=== PATIENT | female | born 1955 | race Caucasian/White ===

== ENCOUNTER 2022-11-20 10:34 | Outpatient (OUT) | payer MEDICARE, SELFPAY | END 2022-11-20 10:35 | LOC: WC 10:34 | PROVIDERS: Visit Provider Podiatrist Foot & Ankle Surgery | DX: L97.521 Non-pressure chronic ulcer of other part of left foot limited to breakdown of skin (principal) | CPT/HCPCS: 99212; G0463 ==

== ENCOUNTER 2022-12-17 09:53 | Outpatient (OUT) | payer MEDICARE, SELFPAY ==
--- NOTE | 2022-12-17 10:20 | XR_ITS ---
The [address] [address] Patient Name: LILY MCKENNA MRN: [id number] date: 1955 Sex: F Assigned Patient Location: Current Patient Location: Accession/Order Number: [id number] Exam Date: 12/17/2022 10:20 Report Date: 12/17/2022 13:14 At the request of: REMI FISH Procedure: XR foot LT min 3V PROCEDURE: XR foot LT min 3V HISTORY: LEFT FOOT PAIN ; follow-up chronic left fourth toe ulcer COMPARISON: XR foot left 08/29/2022 FINDINGS: BONES:No fracture, dislocation, cortical destruction, or periosteal reaction. SOFT TISSUES:No visible soft tissue swelling. EFFUSION:None visible. OTHER: Negative. XR/XR foot LT min 3V IMPRESSION: 1. No findings to suggest osteomyelitis with specific attention to the fourth toe. Electronically authenticated by: JACKELINE CHRISTIANSEN Date: 12/17/2022 13:14
== END 2022-12-17 09:54 | disposition home or self-care (01) ==
LOC: WC 09:53
PROVIDERS: Visit Provider Physician Assistant
DX: M79.672 Pain in left foot (principal); L97.521 Non-pressure chronic ulcer of other part of left foot limited to breakdown of skin
CPT/HCPCS: 73630; G0463

== ENCOUNTER 2023-01-08 13:57 | Outpatient (OUT) | payer MEDICARE, SELFPAY | END 2023-01-08 13:58 | disposition home or self-care (01) | LOC: WC 13:57 | PROVIDERS: Visit Provider Podiatrist Foot & Ankle Surgery | DX: L97.521 Non-pressure chronic ulcer of other part of left foot limited to breakdown of skin (principal); M20.42 Other hammer toe(s) (acquired), left foot; M21.6X2 Other acquired deformities of left foot | CPT/HCPCS: G0463 ==

== ENCOUNTER 2023-01-22 13:02 | Outpatient (OUT) | payer MEDICARE, SELFPAY | END 2023-01-22 13:03 | disposition home or self-care (01) | LOC: WC 13:02 | PROVIDERS: Visit Provider Podiatrist Foot & Ankle Surgery | DX: L97.521 Non-pressure chronic ulcer of other part of left foot limited to breakdown of skin (principal); M20.42 Other hammer toe(s) (acquired), left foot; M21.6X2 Other acquired deformities of left foot | CPT/HCPCS: G0463 ==

== ENCOUNTER 2023-02-05 10:42 | Outpatient (OUT) | payer MEDICARE, SELFPAY ==
--- NOTE | 2023-02-05 11:26 | ECG_ITS ---
The [facility] Test Date: 2023-02-05 Pat Name: LILY MCKENNA Department: Room: - Gender: Female Clinical Education Consultant: : 1955 Requested By: NOE HENSLEY Order Number: [id number] Reading MD: JENNIFER COLES Measurements Intervals Bessie Rate: 69 P: 10 VT: 192 QRS: -2 QRSD: 108 T: 11 QT: 453 QTc: 487 Interpretive Statements SINUS RHYTHM LOW QRS VOLTAGE IN PRECORDIAL LEADS [QRS DEFLECTION < 1.0 mV IN CHEST LEADS] INFERIOR MYOCARDIAL INFARCTION [40+ ms Q WAVE AND/OR ST/T ABNORMALITY IN II/aVF], PROBABLY OLD No previous ECG available for comparison Electronically Signed On 02-06-2023 7:09:02 EDT by JENNIFER COLES
--- NOTE | 2023-02-05 12:04 | PM.PRESUREVA ---
History of Present Illness History of Present Illness Chief complaint: left hammer toe and tailors bunion Narrative: Patient presents for preadmission testing. Please see HPI from Dr. Mcfarland dated 01/22/2023. Review of Systems ROS Narrative REVIEW OF SYSTEMS: Negative except as stated in HPI, ten or more systems reviewed. Constitutional: No fever or chills ENT: No sore throat or epistaxis Cardiovascular: No chest pain, palpitations, or activity intolerance Respiratory: No shortness of breath, cough, or wheezing Gastrointestinal: No abdominal pain, constipation, diarrhea, or vomiting Genitourinary: No dysuria or hematuria Psychiatric: No mood changes [facility] Medical History (Updated 02/05/23 @ 11:54 by Vicki Arora NP) (05/23/21) Surgical History (Updated 02/05/23 @ 11:24 by Vicki Arora NP) Family History (Updated 02/05/23 @ 11:24 by Vicki Arora NP) Other Congestive heart failure Family history of bone cancer Family history of breast cancer Family history of prostate cancer Social History (Updated 02/05/23 @ 11:20 by Vicki Arora NP) Within the past year, how often did you have a drink containing alcohol: never Score interpretation: A score less than 3 is consistent with normal alcohol consumption. Smoking status: Former smoker Non-prescribed substance use: denies use Highest level of school completed/degree received: high school graduate Meds Home Medications and Allergies Home Medications Medication Instructions Recorded Confirmed Type amitriptyline 100 mg tablet 100 mg PO QPM 02/05/23 02/05/23 History amlodipine 5 mg tablet 5 mg PO QAM 02/05/23 02/05/23 History aspirin 81 mg tablet,delayed 81 mg PO DAILY 02/05/23 02/05/23 History release (Adult Aspirin Regimen) atorvastatin 40 mg tablet 40 mg PO QDAY 02/05/23 02/05/23 History buspirone 5 mg tablet 2.5 mg PO BID PRN anxiety 02/05/23 02/05/23 History calcitriol 0.5 mcg capsule 0.5 mcg PO QDAY 02/05/23 02/05/23 History calcium citrate 150 mg capsule mg PO 02/05/23 History escitalopram oxalate 10 mg tablet 10 mg PO QDAY 02/05/23 02/05/23 History levothyroxine 100 mcg tablet 100 mcg PO QAM 02/05/23 02/05/23 History magnesium oxide 400 mg (241.3 mg 400 mg PO BID 02/05/23 02/05/23 History magnesium) tablet melatonin 10 mg capsule 10 mg PO DAILY 02/05/23 02/05/23 History pantoprazole 40 mg tablet,delayed 40 mg PO Q12H 02/05/23 02/05/23 History release vitamin E (dl, acetate) 450 mg 450 mg PO DAILY 02/05/23 02/05/23 History (1,000 unit) capsule Allergies Allergy/AdvReac Type Severity Reaction Status Date / Time nitrofurantoin Allergy Hives Verified 02/05/23 11:16 [From Macrobid] Exam Narrative Exam Narrative: Constitutional: Awake, alert, comfortable, very pleasant, well-appearing, nontoxic, interactive, vital signs as charted Head: Normocephalic, atraumatic Neck: Supple, normal appearance, normal range of motion, no meningeal signs, no lymphadenopathy Respiratory: No respiratory distress, breath sounds clear Cardiovascular: Regular rate and rhythm, strong and regular heart tones Psychiatric: Oriented ?3, normal affect Assessment and Plan Assessment and Plan (1) Foot ulcer: (2) Hammertoe: (3) Tailors bunion: Plan Left 2nd and 5th toe arthroplasties, tailor's bunion correction scheduled with Dr. Mcfarland 02/14/2023.
== END 2023-02-05 10:43 | disposition home or self-care (01) ==
LOC: PST 10:42
PROVIDERS: PCP Nurse Practitioner; Visit Provider Podiatrist Foot & Ankle Surgery
DX: Z01.810 Encounter for preprocedural cardiovascular examination (principal); M20.42 Other hammer toe(s) (acquired), left foot; M21.622 Bunionette of left foot
CPT/HCPCS: 93005; G0463

== ENCOUNTER 2023-02-14 08:46 | Day surgery (SDC) | payer MEDICARE, SELFPAY ==
[2023-02-05 11:50] VITALS: BP 115/77; PULSE 83; RESP 18; TEMP 36.3; O2SAT 97; BMI 24.6
[2023-02-14] VITALS (9 sets, daily range): BP systolic 123–177; BP diastolic 76–100; PULSE 78–91; RESP 14–21; TEMP 36–36.2; O2SAT 90–97; BMI 25.5
[2023-02-14 09:22] LABS: Glucometer 85 mg/dL (74-106)
[2023-02-14] MEDS: LACTATED RINGER'S SOLUTION 1,000 ML 50 ML IV (09:29)
[2023-02-14] MEDS: CEFAZOLIN SODIUM/DEXTROSE,ISO 2 GM/50 ML PIGGYBACK IV (09:46)
--- NOTE | 2023-02-14 10:07 | P.ORON_ITS ---
Brief Operative Note Date of procedure: 02/14/23 Pre-op diagnosis: left 2nd/5th hammertoe, 4th toe contracture and tailor's bun ion Post-op diagnosis: same as pre-op Procedure: PROCEDURES PERFORMED: left tailor's bunionectomy, 2nd, 4th & 5th hammertoe correction with PIPJ arthroplasty, ostectomy 4th proximal phalanx INTRAOPERATIVE FINDINGS: consistent with diagnosis with prominence of the lateral eminence of the 5th metatarsal head. Reducible contractures of the 4th and 5th toes. Bony prominence of the base of the proximal phalanx of the 4th toe PROCEDURES IN DETAIL: Patient was identified in pre op and consent was reviewed. Correct side and site were identified and marked. Pre-op antibiotics were started. Patient was brought to OR suite and place on table in a supine position. General anesthesia was administered. Tourniquet applied. Operative extremity was prepped and draped in usual sterile fashion. Formal time-out was performed and the foot/ankle were exsanguinated and tourniquet inflated. incision was placed on the dorsal lateral aspect of the 5th metatarsal head. Comminution sharp and blunt dissection gained access to the capsule of the 5th metatarsophalangeal joint which was reflected closing the 5th metatarsal head. A sagittal saw was used to remove the bony prominence of the lateral eminence of the 5th metatarsal head. A hand rasp was used to contour the bone and the surgical site was irrigated with copious saline. With attention to the 2nd digit a dorsal incision was created over the PIPJ. Sharp and blunt dissection down to the extensor tendon was performed. The tendon was incised transversely then reflected proximally. A sagittal saw was used to remove the proximal phalanx head. The site was flushed with sterile saline. With attention to the 4th digit a dorsal incision was created over the PIPJ. Sharp and blunt dissection down to the extensor tendon was performed. The tendon was incised transversely then reflected proximally. A sagittal saw was used to remove the proximal phalanx head. The site was flushed with sterile saline. then the incision was extended proximally to the 4th metatarsal phalangeal joint. Sharp & blunt dissection along the lateral aspect of the 4th proximal phalanx was performed to expose the lateral condyle. Hand rasp was used to smooth this condyle until no longer prominent. With attention to the 5th digit a semi-elliptical dorsal incision was created over the PIPJ. Sharp and blunt dissection down to the extensor tendon was performed. The tendon was incised transversely then reflected proximally. A sagittal saw was used to remove the proximal phalanx head. The site was flushed with sterile saline. The tendons for toes 2, 4 & 5 were repaired with absorbable suture. Surgical site was irrigated copiously saline and all incisions were closed in layers. The tourniquet was deflated with a prompt hyperemic response. A dry sterile dressing and surgical shoe were applied. Patient tolerated procedure and anesthesia well transferred to the recovery room with vital signs stable and brisk capillary refill to all digits POSTOPERATIVE PLAN: Discharge home under family's care Post op instructions provided verbally and written prescription(s) were placed in chart weightbearing as tolerated in surgical shoe until skin has healed Follow-up in 1 week Implants: none Anesthesia: General-LMA Surgeon: Glen Mcfarland Material Disposition Inspector: Gio Case Estimated blood loss (mL): 10 Pathology: none sent Condition: stable Disposition: PACU Preoperative Details Reason for procedure: patient is a 67-year-old female status post CVA and well known to my practice. She initially presents me for a wound between her 4th and 5th toes which has healed with local wound care however patient hasn't noted on multiple visits of worsening pain and contractures specifically of the 2nd and 5th toe and a prominent Tailor's bunion on her left foot. Today in the preoperative area she also relates to pain at the base of the 4th toe over the lateral proximal condyle of the proximal phalanx. Shoe modification and padding did not help patient's pain or function therefore wishes to proceed with surgical intervention. Patient education was provided outlining all potential risks and benefits. All questions were answered to her and her 's expectation.
[2023-02-14] MEDS: BUPIVACAINE HCL 0.5% PF 50 MG/10 ML VIAL INJ (10:17)
--- NOTE | 2023-02-14 11:22 | XR_ITS ---
The [place] [id number] Patient Name: LILY MCKENNA MRN: [id number] date: 1955 Sex: F Assigned Patient Location: [facility] Current Patient Location: Accession/Order Number: [id number] Exam Date: 02/14/2023 12:00 Report Date: 02/14/2023 17:01 At the request of: LALO OCONNOR Procedure: XR foot LT min 3V XR foot LT min 3V, 02/14/2023 12:00 PM EDT, OH001 INDICATION: postop xr pacu COMPARISON: Radiographs from 12/17/2022. TECHNIQUE: 3 images are submitted. FINDINGS: There is been interval resection of the distal aspect of the fourth and fifth proximal phalanges. The bones appear well mineralized. No acute fracture or subluxation is identified. The joint spaces are maintained. No destructive osseous process is identified. The visualized soft tissues appear unremarkable. XR/XR foot LT min 3V IMPRESSION: Status post resection of the distal aspect of the fourth and fifth proximal phalanges. No other significant interval change is seen. Electronically authenticated by: ELLE PRIEST Date: 02/14/2023 17:01
[2023-02-14 11:51] LABS: Glucometer 97 mg/dL (74-106)
== END 2023-02-14 12:18 | disposition home or self-care (01) ==
PROVIDERS: PCP Nurse Practitioner; Visit Provider Podiatrist Foot & Ankle Surgery
PROC: (CPT 28110; principal; 2023-02-14 09:45)
DX: M20.42 Other hammer toe(s) (acquired), left foot (principal); M21.622 Bunionette of left foot; Z87.891 Personal history of nicotine dependence; Z79.82 Long term (current) use of aspirin; Z79.899 Other long term (current) drug therapy; M20.5X2 Other deformities of toe(s) (acquired), left foot
CPT/HCPCS: 28110; 28285 ×3; 36415; 73630; 82948; J2704

== ENCOUNTER 2023-03-05 14:54 | Outpatient (OUT) | payer MEDICARE, SELFPAY | END 2023-03-05 14:55 | disposition home or self-care (01) | LOC: WC 14:54 | PROVIDERS: PCP Nurse Practitioner; Visit Provider Podiatrist Foot & Ankle Surgery | DX: M20.42 Other hammer toe(s) (acquired), left foot (principal); M21.6X2 Other acquired deformities of left foot | CPT/HCPCS: G0463 ==

== ENCOUNTER 2023-04-03 14:28 | Outpatient (OUT) | payer MEDICARE, SELFPAY ==
--- NOTE | 2023-04-03 | XR_ITS ---
The [address] [address] Patient Name: LILY MCKENNA MRN: [id number] date: 1955 Sex: F Assigned Patient Location: Current Patient Location: Accession/Order Number: [id number] Exam Date: 04/03/2023 15:30 Report Date: 04/05/2023 06:19 At the request of: NOE HENSLEY Procedure: XR foot LT min 3V PROCEDURE: XR foot LT min 3V HISTORY: LEFT FOOT PAIN , left second toe pain, redness, swelling COMPARISON: XR foot 02/14/2023 FINDINGS: BONES:Prior resection of the distal articular surface of the second and fourth proximal phalanx. No fracture, dislocation, bone lesion. Multifocal mild degenerative changes involving the interphalangeal joints. SOFT TISSUES:Soft tissue swelling of the second toe. EFFUSION:None visible. OTHER: Negative. XR/XR foot LT min 3V IMPRESSION: 1. Stable surgical changes. 2. No suspicious bone abnormality. 3. Second toe soft tissue swelling of uncertain etiology. Electronically authenticated by: JACKELINE CHRISTIANSEN Date: 04/05/2023 06:19
== END 2023-04-03 14:29 | disposition home or self-care (01) ==
LOC: WC 14:28
PROVIDERS: PCP Nurse Practitioner; Visit Provider Podiatrist Foot & Ankle Surgery
DX: M20.42 Other hammer toe(s) (acquired), left foot (principal); S91.105A Unspecified open wound of left lesser toe(s) without damage to nail, initial encounter
CPT/HCPCS: 73630; G0463

== ENCOUNTER 2023-04-19 10:59 | Outpatient (OUT) | payer MEDICARE, SELFPAY | END 2023-04-19 11:00 | disposition home or self-care (01) | LOC: WC 10:59 | PROVIDERS: PCP Nurse Practitioner; Visit Provider Podiatrist Foot & Ankle Surgery | DX: M20.42 Other hammer toe(s) (acquired), left foot (principal) | CPT/HCPCS: G0463 ==

== ENCOUNTER 2024-02-05 10:15 | Outpatient (OUT) | payer MEDICARE, SELFPAY ==
--- NOTE | 2024-02-05 | XR_ITS ---
The [address] [address] Patient Name: LILY MCKENNA MRN: [id number] date: 1955 Sex: F Assigned Patient Location: Current Patient Location: Accession/Order Number: [id number] Exam Date: 02/05/2024 10:16 Report Date: 02/06/2024 07:28 At the request of: NOE HENSLEY Procedure: XR foot LT min 3V PROCEDURE: XR foot LT min 3V COMPARISON: 04/03/2023 HISTORY: LEFT FOOT PAIN FINDINGS: BONES:No acute fracture or dislocation. Persistent flexion of the toes with bony overlap limiting evaluation. Mild stable degenerative changes. Remote shave osteotomy lateral head of the fifth metatarsal SOFT TISSUES:Negative. No visible soft tissue swelling. EFFUSION:None visible. OTHER: Negative. XR/XR foot LT min 3V IMPRESSION: Stable exam Electronically authenticated by: MIKEL REYES Date: 02/06/2024 07:28
== END 2024-02-05 10:16 | disposition home or self-care (01) ==
LOC: EC 10:15
PROVIDERS: PCP Nurse Practitioner; Visit Provider Podiatrist Foot & Ankle Surgery
DX: M79.672 Pain in left foot (principal)
CPT/HCPCS: 73630